=== PATIENT | male | born 1960 | race African-American/Black ===

== ENCOUNTER 2018-08-02 14:01 | Inpatient (IN) | payer OTHER ==
[~2018-08-02] VITALS: Ht 165.1 cm; Wt 134.7 kg
[~2018-08-02 14:01] MED LIST: IBUPROFEN 800800 MG PO
[2018-08-02 14:02] VITALS: BP 138/81
[2018-08-02] MEDS ORDERED: MIRALAX17 GM PO (14:08)
[2018-08-02] MEDS ORDERED: KEFLEX500 M1 PO (14:08)
[2018-08-02] MEDS ORDERED: RISPERDAL2 MG PO (14:09)
[2018-08-02] MEDS ORDERED: SENEXON8.6 MG PO (14:09)
[2018-08-02] MEDS ORDERED: LIPITOR 20 MG T20 M1 PO (14:10)
[2018-08-02] MEDS ORDERED: VENTOLIN HFA 1818 GM INH (14:10)
--- NOTE | 2018-08-02 14:23 | NUR ---
ATTEPT FOR IV WITHOUT SUCESS IN LEFT HAND
[2018-08-02 15:01] LABS: URINE CLARITY CLEAR; URINE COLOR YELLOW; URINE GLUCOSE-RANDOM* NEGATIVE (Negative); URINE PROTEIN (DIPSTICK) 1+ (Negative)
[2018-08-02 15:02] LABS: HEMATOCRIT 35.8 % (42.0-52.0); HEMOGLOBIN 11.9 gm/dL (14.0-18.0); MCH 28.9 pg (26.0-34.0); MCHC 33.1 g/dL (28.0-37.0); MCV 87.3 fL (80.0-100.0); PLATELET COUNT 159 thou/uL (150-400); RDW 14.4 % (10.5-14.5); WBC 11.5 thou/uL (4.0-11.0)
[2018-08-02 15:02] LABS: URINE BILIRUBIN NEGATIVE (Negative); URINE BLOOD 3+ (Negative); URINE KETONES NEGATIVE (Negative); URINE LEUKOCYTES 1+ (Negative); URINE NITRITE POSITIVE (Negative)
[2018-08-02 15:11] LABS: POTASSIUM 3.6 mmol/L (3.5-5.1)
[2018-08-02 15:16] LABS: ALBUMIN 3.1 g/dL (3.4-5.0); DIRECT BILIRUBIN 0.4 mg/dL (<0.1-0.3); TOTAL BILIRUBIN 2.2 mg/dL (<0.1-1.0); TOTAL PROTEIN 7.8 g/dL (6.4-8.2)
[2018-08-02 15:29] LABS: FINE GRANULAR CASTS 0-3 Few /LPF (None Seen); SQUAMOUS 0-3 Few /LPF (0-3)
[2018-08-02 15:30] LABS: CRYSTALS None Seen /LPF (None Seen); URINE RBC 0-2 Rare /HPF (0-2)
[2018-08-02 16:15] VITALS: BP 148/88
[2018-08-02 17:06] VITALS: BP 139/65
[2018-08-02 17:36] LABS: ABSOLUTE NEUTROPHILS 7.8 thou/uL (1.4-8.2)
[2018-08-02 17:37] LABS: ANISOCYTOSIS SLIGHT
[2018-08-02] MEDS ORDERED: ASPIRIN81 M2 PO (18:06)
[2018-08-02] MEDS ORDERED: NORVASC5 MG PO (18:07)
[2018-08-02] MEDS ORDERED: LISINOPRIL40 MG PO (18:07)
[2018-08-02] MEDS ORDERED: CARVEDILOL3.125 MG PO (18:08)
[2018-08-02] MEDS ORDERED: FLOMAX0.4 MG PO (18:08)
--- NOTE | 2018-08-02 19:31 | NUR ---
ASSUMED CARE AT 1715, SHIFT ASSESSMENT DONE, VSS. ADMISSION COMPLETED. IV FLUIDS STARTED. ON CLEAR LIQUIDS. REPORT GIVEN TO NIGHT NURSE.
[2018-08-02 22:55] VITALS: BP 136/68
--- NOTE | 2018-08-03 02:01 | EKG ---
[address] [place] [address] ELECTROCARDIOGRAM REPORT Name: JEROMY LAU Room #: 417-I ADM IN M.R.#: [id number] Admission: 08/02/18 Attend Phys: Domingo Baron MD Discharge: Date of : 64 Report #: [id number] THIS REPORT FOR: //name// [facility] ED Test Date: 2018-08-02 Test Time: 14:08:39 Pat Name: JEROMY LAU Department: Room: [facility] Gender: M Juice Tester: YING : 1960 Requested By: Dannielle Goff Order Number: [id number] MD: Jose Smallwood Measurements Intervals [place] Rate: 81 P: 11 DC: 155 QRS: 9 QRSD: 92 T: 11 QT: 368 QTc: 428 Interpretive Statements Sinus rhythm Baseline wander Nonspecific ST-T wave changes Compared to ECG 10/09/2012 03:23:07 No significant changes Electronically Signed On 08-03-2018 2:01:19 TOP FLAVOR ATTENDANT by Jose Smallwood [email or web address] <ELECTRONICALLY SIGNED> By: Jose Smallwood MD 08/03/18 0201 [id number] Jose Smallwood MD /EPI
[2018-08-03 04:00] VITALS: BP 117/60
--- NOTE | 2018-08-03 04:23 | NUR ---
PT IS UP AD BALDEMAR IN ROOM. IVF INFUSING. IGNACIO TO D/D WITH CLEAR YELLOW URINE. ISOLATION FOR FLU. FEBRILE. TYLENOL GIVEN X 1. PT GIVEN PRN BREATHING TREATMENT FOR C/O STUFFY NOSE.WILL CONTINUE WITH POC TILL EOS.
[2018-08-03 05:33] LABS: HEMATOCRIT 33.5 % (42.0-52.0); HEMOGLOBIN 11.1 gm/dL (14.0-18.0); MCH 29.1 pg (26.0-34.0); MCHC 33.2 g/dL (28.0-37.0); MCV 87.8 fL (80.0-100.0); RBC 3.82 mil/uL (4.50-6.00); WBC 8.6 thou/uL (4.0-11.0)
[2018-08-03 05:47] LABS: CALCIUM 8.2 mg/dL (8.5-10.1); CREATININE 1.1 mg/dL (0.7-1.3); MAGNESIUM 1.8 mg/dL (1.8-2.4); POTASSIUM 3.8 mmol/L (3.5-5.1)
[2018-08-03 07:30] VITALS: BP 125/68
--- NOTE | 2018-08-03 09:36 | NUR ---
PT SITTING IN BEDSIDE CHAIR NO PAIN HAD LARGE FORMED BROWN BOWEL MOVEMENT. PT TOOK BATH AND BRUSHED TEETH. GOWN CHANGED PT PLEASANT AND COOPERATIVE.
[2018-08-03 09:40] VITALS: BP 125/68
[2018-08-03 19:02] VITALS: BP 142/67
[2018-08-04 03:42] VITALS: BP 166/71
[2018-08-04 05:28] LABS: HEMATOCRIT 32.8 % (42.0-52.0); HEMOGLOBIN 10.9 gm/dL (14.0-18.0); MCH 29.1 pg (26.0-34.0); MCHC 33.3 g/dL (28.0-37.0); MCV 87.4 fL (80.0-100.0); RBC 3.76 mil/uL (4.50-6.00); RDW 14.1 % (10.5-14.5)
[2018-08-04 05:41] LABS: CALCIUM 8.1 mg/dL (8.5-10.1); CREATININE 0.9 mg/dL (0.7-1.3); MAGNESIUM 1.9 mg/dL (1.8-2.4); POTASSIUM 3.8 mmol/L (3.5-5.1)
--- NOTE | 2018-08-04 05:56 | NUR ---
ASSUMED CARE AT 1900, ASSESSMENT COMPLETED. PT DENIED PAIN, NAUSEA, OR SOB. NO COUGH NOTED. MAINTAINED ISOLATION FOR FLU. IV FLUIDS INFUSING OVERNIGHT. RIGHT HAND IV LEAKING, INFILTRATED; NEW IV STARTED IN LEFT HAND. LARGE OUTPUT FROM IGNACIO, COLEY COLORED URINE. PT CALLED APPROPRIATELY WHEN IV BEEPING, OR IF NEEDING HELP. NO OTHER CONCERNS, WILL CONTINUE TO MONITOR.
[2018-08-04 07:10] VITALS: BP 164/64
--- NOTE | 2018-08-04 10:31 | NUR ---
ASSUMED CARE AT 0700, SHIFT ASSESSMENT DONE, MEDS GIVEN, BP ELEVATED. REPORTED HEADECHE, PRN TYLNOL GIVEN. BP MED ORDERS RECEIVED FROM DR MORALES AND WILL BE GIVEN BP MEDS ONCE VERIFIED. [facility] CALLED AND FAXED PAPERWORK INDICATING CULTURE RESULTS FROM URINE. DR MORALES MADE AWARE AND ORAL ANTIBITOCS ORDER RECEIVED. IGNACIO IN PLACE DRAINING YELLOW URINE. POSSIBLE DISCHARGE TODAY, WILL NEED CAB VOUCHER TO GO HOME SISTER WILL NOT BE ABLE TO LINSEED OIL ORDER FILLER, REGISTRATION OFFICER AWARE.
[2018-08-04] MEDS ORDERED: CIPRO500 MG PO (13:45)
[2018-08-04] MEDS ORDERED: OSELB75 PO (13:46)
[2018-08-04] MEDS ORDERED: AMOXICILLIN 50500 MG PO (13:48)
[2018-08-04 14:59] VITALS: BP 169/68
== END 2018-08-04 15:25 | disposition home or self-care (01) | DRG 866 ==
LOC: ER 14:01 → EROBS 15:57 → 4E 15:57
PROVIDERS: Emergency Medicine; ADMIT Internal Medicine
DX: J10.2 Influenza due to other identified influenza virus with gastrointestinal manifestations (principal); N39.0 Urinary tract infection, site not specified; R33.9 Retention of urine, unspecified; D72.829 Elevated white blood cell count, unspecified; E78.5 Hyperlipidemia, unspecified; F20.9 Schizophrenia, unspecified; R16.0 Hepatomegaly, not elsewhere classified; I10 Essential (primary) hypertension; Z88.8 Allergy status to other drugs, medicaments and biological substances; Z79.899 Other long term (current) drug therapy; Z79.82 Long term (current) use of aspirin; Z90.49 Acquired absence of other specified parts of digestive tract
CPT/HCPCS: 10084

== ENCOUNTER 2019-01-01 08:50 | Emergency (ER) | payer OTHER ==
[~2019-01-01] VITALS: Ht 172.7 cm; Wt 129.8 kg
[2019-01-01 08:50] VITALS: BP 148/102
[~2019-01-01 08:50] MED LIST changes: +AMOXICILLIN 50500 MG PO; +ASPIRIN81 M2 PO; +CARVEDILOL3.125 MG PO; +CIPRO500 MG PO; +FLOMAX0.4 MG PO; +KEFLEX500 M1 PO; +LIPITOR 20 MG T20 M1 PO; +LISINOPRIL40 MG PO; +MIRALAX17 GM PO; +NORVASC5 MG PO; +OSELB75 PO; +RISPERDAL2 MG PO; +SENEXON8.6 MG PO; +VENTOLIN HFA 1818 GM INH
== END 2019-01-01 09:32 | disposition home or self-care (01) ==
LOC: ER 08:50
DX: T83.098A Other mechanical complication of other urinary catheter, initial encounter (principal); N40.1 Benign prostatic hyperplasia with lower urinary tract symptoms; R33.8 Other retention of urine; I10 Essential (primary) hypertension; F20.9 Schizophrenia, unspecified; J45.909 Unspecified asthma, uncomplicated; Z87.442 Personal history of urinary calculi; Z88.8 Allergy status to other drugs, medicaments and biological substances; Y84.9 Medical procedure, unspecified as the cause of abnormal reaction of the patient, or of later complication, without mention of misadventure at the time of the procedure; Y92.89 Other specified places as the place of occurrence of the external cause

== ENCOUNTER 2019-05-01 01:50 | Emergency (ER) | payer OTHER ==
[~2019-05-01] VITALS: Ht 165.1 cm; Wt 130.2 kg
[2019-05-01 02:30] LABS: ABSOLUTE NEUTROPHILS 9.9 thou/uL (1.4-8.2); BASOPHILS 0.4 % (0.0-2.0); EOSINOPHILS 0.9 % (0.0-3.0); HEMATOCRIT 38.1 % (42.0-52.0); HEMOGLOBIN 12.5 gm/dL (14.0-18.0); LYMPHOCYTES 10.3 % (24.0-44.0); MCHC 32.8 g/dL (28.0-37.0); MCV 88.3 fL (80.0-100.0); MONOCYTES 8.7 % (1.0-8.0); PLATELET COUNT 238 thou/uL (150-400); POLYS 79.7 % (36.0-66.0); RBC 4.31 mil/uL (4.50-6.00); RDW 14.5 % (10.5-14.5); WBC 12.4 thou/uL (4.0-11.0)
[2019-05-01 02:31] LABS: URINE BILIRUBIN NEGATIVE (Negative); URINE BLOOD 2+ (Negative); URINE CLARITY SL CLOUDY; URINE COLOR YELLOW; URINE GLUCOSE-RANDOM* NEGATIVE (Negative); URINE KETONES NEGATIVE (Negative); URINE LEUKOCYTES 1+ (Negative); URINE NITRITE POSITIVE (Negative); URINE PROTEIN (DIPSTICK) NEGATIVE (Negative); URINE SPECIFIC GRAVITY 1.015 (1.005-1.035)
[2019-05-01 02:37] LABS: CALCIUM 9.1 mg/dL (8.5-10.1); CREATININE 1.1 mg/dL (0.7-1.3)
[2019-05-01 02:38] LABS: SQUAMOUS 4-10 Moderate /LPF (0-3)
[2019-05-01 02:39] LABS: BACTERIA >30 Many /HPF (None Seen); CASTS None Seen /LPF (None Seen); CRYSTALS None Seen /LPF (None Seen); MUCUS 0-3 Light strn/LPF (None Seen)
[2019-05-01 02:42] LABS: ALBUMIN 3.6 g/dL (3.4-5.0); TOTAL BILIRUBIN 1.1 mg/dL (<0.1-1.0); TOTAL PROTEIN 7.9 g/dL (6.4-8.2)
[2019-05-01] MEDS ORDERED: MIRALAX119 GM PO (05:28)
[2019-05-01] MEDS ORDERED: NORCO 5-325 TA1 EAC1 PO (05:28)
[2019-05-01] MEDS ORDERED: LEVAQUIN 500 M500 M1 PO (05:28)
[2019-05-01 09:47] VITALS: BP 141/81
== END 2019-05-01 09:50 | disposition home or self-care (01) ==
LOC: ER 01:50
PROVIDERS: Emergency Medicine
DX: N45.3 Epididymo-orchitis (principal); R11.2 Nausea with vomiting, unspecified; R10.32 Left lower quadrant pain; I10 Essential (primary) hypertension; J45.909 Unspecified asthma, uncomplicated; F20.9 Schizophrenia, unspecified; Z87.442 Personal history of urinary calculi; Z88.8 Allergy status to other drugs, medicaments and biological substances

== ENCOUNTER 2019-06-05 16:50 | Emergency (ER) | payer OTHER ==
[~2019-06-05] VITALS: Ht 165.1 cm; Wt 130.6 kg
[~2019-06-05 16:50] MED LIST changes: +LEVAQUIN 500 M500 M1 PO; +MIRALAX119 GM PO; +NORCO 5-325 TA1 EAC1 PO
[2019-06-05 18:36] LABS: URINE BILIRUBIN NEGATIVE (Negative); URINE BLOOD 2+ (Negative); URINE CLARITY CLEAR; URINE COLOR YELLOW; URINE GLUCOSE-RANDOM* NEGATIVE (Negative); URINE KETONES NEGATIVE (Negative); URINE PROTEIN (DIPSTICK) 2+ (Negative); URINE SPECIFIC GRAVITY >= 1.030 (1.005-1.035)
[2019-06-05 18:41] LABS: URINE LEUKOCYTES-REFLEX 1+ (Negative); URINE NITRITE-REFLEX POSITIVE (Negative)
[2019-06-05 18:46] LABS: BACTERIA-REFLEX >30 Many /HPF (None Seen); CASTS None Seen /LPF (None Seen); MUCUS 4-6 Moderate strn/LPF (None Seen); SQUAMOUS None Seen /LPF (0-3); URIC ACID CRYSTALS >10 Many /LPF (None Seen); URINE WBC-REFLEX >25 Many /HPF (0-5)
[2019-06-05 18:47] LABS: TRANSITIONAL EPITHEL CELL 4-10 Moderate /LPF (None Seen)
[2019-06-05] MEDS ORDERED: KEFLEX500 M2 PO (19:25)
[2019-06-05 19:31] VITALS: BP 167/78
== END 2019-06-05 19:49 | disposition home or self-care (01) ==
LOC: ER 16:50
PROVIDERS: Nurse Practitioner Family
DX: T83.038A Leakage of other urinary catheter, initial encounter (principal); N39.0 Urinary tract infection, site not specified; I10 Essential (primary) hypertension; J45.909 Unspecified asthma, uncomplicated; F20.9 Schizophrenia, unspecified; Z87.442 Personal history of urinary calculi; Z88.8 Allergy status to other drugs, medicaments and biological substances; Y92.89 Other specified places as the place of occurrence of the external cause; Y81.2 Prosthetic and other implants, materials and accessory general- and plastic-surgery devices associated with adverse incidents

== ENCOUNTER 2019-07-11 11:11 | Emergency (ER) | payer OTHER ==
[~2019-07-11] VITALS: Ht 167.6 cm; Wt 130.6 kg
[~2019-07-11 11:11] MED LIST changes: +KEFLEX500 M2 PO
[2019-07-11 12:16] LABS: URINE BILIRUBIN 1+ (Negative); URINE BLOOD 3+ (Negative); URINE CLARITY SL CLOUDY; URINE COLOR YELLOW; URINE GLUCOSE-RANDOM* NEGATIVE (Negative); URINE KETONES NEGATIVE (Negative); URINE PROTEIN (DIPSTICK) 3+ (Negative); URINE SPECIFIC GRAVITY >= 1.030 (1.005-1.035)
[2019-07-11 12:21] LABS: ICTOTEST (BILI CONFIRMATORY) Negative (Negative); URINE LEUKOCYTES-REFLEX 2+ (Negative); URINE NITRITE-REFLEX POSITIVE (Negative)
[2019-07-11 12:27] LABS: SQUAMOUS 0-3 Few /LPF (0-3); URINE RBC >20 Many /HPF (0-2)
[2019-07-11 12:28] LABS: CASTS None Seen /LPF (None Seen); CRYSTALS None Seen /LPF (None Seen); URINE WBC-REFLEX 0-5 Rare /HPF (0-5)
[2019-07-11 12:29] LABS: BACTERIA-REFLEX 1-9 Few /HPF (None Seen)
[2019-07-11 13:16] VITALS: BP 137/82
== END 2019-07-11 13:20 | disposition home or self-care (01) ==
LOC: ER 11:11
PROVIDERS: Physician Assistant
DX: T83.098A Other mechanical complication of other urinary catheter, initial encounter (principal); I10 Essential (primary) hypertension; F20.9 Schizophrenia, unspecified; J45.909 Unspecified asthma, uncomplicated; Z88.8 Allergy status to other drugs, medicaments and biological substances; Z87.442 Personal history of urinary calculi; Y84.6 Urinary catheterization as the cause of abnormal reaction of the patient, or of later complication, without mention of misadventure at the time of the procedure; Y92.89 Other specified places as the place of occurrence of the external cause